=== PATIENT | female | born 1960 | race Caucasian/White ===

== ENCOUNTER → 2018-01-26 | Outpatient (CLI) | payer OTHER ==
[~2018-01-26] MED LIST: ANAPROX DS550 MG PO; BACTRIM DS 8001 TA1 PO; CEFADROXIL500 MG PO; CEPHALEXIN500 M1 PO
== END | disposition home or self-care (01) ==
LOC: ORTHO 01:23
DX: M79.641 Pain in right hand (principal); M79.642 Pain in left hand; R20.0 Anesthesia of skin

== ENCOUNTER → 2019-05-08 | Outpatient (CLI) | payer OTHER | END | disposition home or self-care (01) | LOC: ORTHO 00:56 | DX: M19.042 Primary osteoarthritis, left hand (principal) ==